=== PATIENT | female | born 1975 | race African-American/Black ===

== ENCOUNTER 2017-07-18 01:54 | Emergency (ER) | payer OTHER ==
[~2017-07-18] VITALS: Ht 152.4 cm; Wt 74.0 kg
[2017-07-18] MEDS ORDERED: ACETAMINOPHEN 500MG TABLET PO ONE (02:30)
[2017-07-18 03:14] LABS: EOSINOPHILS % 6.5 % (0.0-5.0); HEMATOCRIT. 41.6 % (36.0-48.0); HEMOGLOBIN. 14.1 g/dL (12.0-16.0); LYMPHOCYTES % 44.5 % (20.0-50.0); MEAN CORPUSCULAR HEMOGLOBIN 33.8 pg (28.0-32.0); MEAN CORPUSCULAR VOLUME 99.8 fL (81.0-99.0); MEAN PLATELET VOLUME 8.9 fl (7.4-10.4); PLATELET 344 x1000/uL (130-400); RED BLOOD CELL COUNT 4.17 mill/uL (4.2-5.4)
[2017-07-18 03:19] LABS: CHLORIDE 107 mEq/L (98-107)
[2017-07-18 03:23] LABS: ETHANOL BLOOD 49 mg/dL
[2017-07-18 03:24] LABS: PARTIAL THROMBOPLASTIN TIME 25.2 sec (23.4-31.0); PROTHROMBIN TIME 10.7 sec (9.4-11.6)
[2017-07-18] MEDS ORDERED: KETOROLAC 30MG/ML VIAL IV ONE (04:00)
[2017-07-18 04:19] VITALS: BP 125/75
== END 2017-07-18 04:51 | disposition home or self-care (01) ==
LOC: ER 01:54 → CANBEDREQ 06:22
DX: R55 Syncope and collapse (principal); F10.129 Alcohol abuse with intoxication, unspecified; R51 Headache; F17.200 Nicotine dependence, unspecified, uncomplicated; H53.143 Visual discomfort, bilateral; Y90.2 Blood alcohol level of 40-59 mg/100 ml
CPT/HCPCS: 36415; 70450; 71045; 80053; 81025; 84484; 85025; 85610; 85730; 86850; 86900; 86901; 93005; 99285; G0482; J1885